=== PATIENT | female | born 1980 | race Caucasian/White ===

== ENCOUNTER → 2019-05-31 | Outpatient (CLI) | payer BC ==
[~2019-05-31] MED LIST: IOHEXOL 240 MG/ML 50ML VIAL. ONE; IOHEXOL 300 MG/ML 75 ML VIAL. IV ONE
--- NOTE | 2019-05-31 16:16 | RAD ---
Examination: CT ABD PELV W/ORAL IV CONTRAST History: Left lower quadrant pain with nausea Comparison/Correlation: 04/18/2009 CT abdomen and pelvis without contrast Findings: Axial images of the abdomen and pelvis were obtained following IV contrast. Sagittal and coronal images were provided. Oral contrast utilized. The visualized lung bases are clear. Liver, spleen, uterus, adrenal glands, and kidneys are normal. Appendix is normal. Diverticulosis of the colon is present. There is subtle stranding about the distal descending colon at its lateral aspect. No significant wall thickening. No bowel obstruction. No extraluminal gas. Uterus is unremarkable. Urinary bladder is unremarkable. No pelvic free fluid. Bilateral pars interarticularis fractures at L5 noted with grade 2 anterolisthesis of L5 in relation S1. Severe endplate sclerosis and disc space narrowing is present at this level. Impression: Subtle stranding about the lateral aspect of the distal descending colon. This raises question of diverticulitis or other inflammatory process. No abscess collection. 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 PQRS Compliance Statement: One or more of the following individualized dose reduction techniques were utilized for this examination: 1. Automated exposure control 2. Adjustment of the mA and/or kV according to patient size 3. Use of iterative reconstruction technique Electronically signed by: Juan Jose Nash MD (05/31/2019 4:13 PM) [facility]
== END | disposition home or self-care (01) ==
LOC: CT 13:48
PROVIDERS: ATTEND Emergency Medicine
DX: K57.30 Diverticulosis of large intestine without perforation or abscess without bleeding (principal); S32.058A Other fracture of fifth lumbar vertebra, initial encounter for closed fracture; M43.17 Spondylolisthesis, lumbosacral region; M48.061 Spinal stenosis, lumbar region without neurogenic claudication; X58.XXXA Exposure to other specified factors, initial encounter; Y93.89 Activity, other specified; Y92.89 Other specified places as the place of occurrence of the external cause; Y99.8 Other external cause status
CPT/HCPCS: 74177; Q9967

== ENCOUNTER → 2021-11-06 | Outpatient (CLI) | payer BC, OTHER ==
--- NOTE | 2021-11-06 13:20 | RAD ---
XR EXAM OF ANKLE_RIGHT 3VIEWS, XR FOOT_RIGHT 3 VIEWS History: Fall. Pain in ankle and foot. Comparison: None. Findings: Osseous mineralization is normal. No acute fracture or dislocaton. The ankle mortise and talar dome a re intact. No significant degenerative changes. Soft tissues are unremarkable. Impression: 1. No acute osseous abnormality in the right foot and ankle. Electronically signed by: Alex Dinero MD (11/06/2021 1:17 PM) [id number]
== END ==
LOC: RAD 12:40
PROVIDERS: ATTEND Registered Nurse
DX: M25.571 Pain in right ankle and joints of right foot (principal)
CPT/HCPCS: 73610; 73630